=== PATIENT | male | born 1945 | race Caucasian/White ===

== ENCOUNTER 2019-01-31 16:11 | Outpatient (CLI) | payer MEDICARE ==
--- NOTE | 2019-01-31 16:47 | CT ---
Exam: Noncontrast chest CT; CT lung scan low dose HISTORY:Low-dose lung scan. Screening study. 50 plus years smoking history. Patient currently still s mokes. COMPARISON: None TECHNIQUE: Low-dose screening lung CT is performed utilizing institutional protocol FINDINGS: Lung screening specific (LUNG-RADS): Category 2. Benign findings. 5 mm subpleural lymph node adjacent to the right major fissure. 4 mm nodule in the right lower lobe. 3 mm nodule in the middle lobe. There is nodularity in the left and right lung apex measuring 0.6 x 0.6, 0.3 x 0.4 cm at the left jovan g apex and 0.8 x 0.4 and 0.5 x 0.6 cm in the right lung apex. Additional linear opacity in the left or right lung apex likely represent scarring. Potential significant incidentals (lung RADS category S): None Pulmonary incidentals:Mild emphysematous changes of the lung parenchyma. Other incidentals: Contracted gallbladder with gallstones. IMPRESSION: 1. Lung RADS 2. Benign finding. Nodularity in the left or right lung apex with linear opacities likel y representing scarring. 2. Lung Rask category S: Negative. No new or unknown potential significant incidental findings requir ing urgent additional evaluation 3. Other incidentals as above. Recommendation: Continued routine annual low-dose lung screening CT. Follow-up in one year. Transcribed Date/Time: 01/31/2019 5:33 PM
== END 2019-01-31 16:12 | disposition home or self-care (01) ==
LOC: CT 16:11
PROVIDERS: ATTEND Internal Medicine
DX: Z87.891 Personal history of nicotine dependence (principal); R91.8 Other nonspecific abnormal finding of lung field
CPT/HCPCS: G0297

== ENCOUNTER 2020-11-07 14:18 | Outpatient (CLI) | payer MEDICARE | END 2020-11-07 14:19 | disposition home or self-care (01) | LOC: BICCT 14:18 | PROVIDERS: ATTEND Internal Medicine | DX: Z12.2 Encounter for screening for malignant neoplasm of respiratory organs (principal); F17.210 Nicotine dependence, cigarettes, uncomplicated; K80.20 Calculus of gallbladder without cholecystitis without obstruction; J43.9 Emphysema, unspecified | CPT/HCPCS: 71271 ==

== ENCOUNTER 2022-01-23 12:27 | Outpatient (CLI) | payer MEDICARE | END 2022-01-23 12:28 | disposition home or self-care (01) | LOC: CT 12:27 | PROVIDERS: ATTEND Internal Medicine | DX: Z12.2 Encounter for screening for malignant neoplasm of respiratory organs (principal); F17.210 Nicotine dependence, cigarettes, uncomplicated | CPT/HCPCS: 71271 ==

== ENCOUNTER 2023-05-10 08:45 | Day surgery (SDC) | payer MEDICARE ==
[2023-05-06 10:06] VITALS: BMI 23.6
[2023-05-10] MEDS ORDERED: Fentanyl 250 MCG/5 ML VIAL ONE (11:21)
[2023-05-10] MEDS ORDERED: CEFAZOLIN 2 GM VIAL ONE (11:28)
[2023-05-10] MEDS ORDERED: Sodium Chloride 0.9% 100 ML ONE (11:28)
[2023-05-10] MEDS ORDERED: ePHEDrine Sulfate 50 MG/10 ML VIAL ONE (11:38)
[2023-05-10] MEDS ORDERED: Rocuronium Bromide 10 MG/ML (10ML VIAL) ONE (11:38)
[2023-05-10] MEDS ORDERED: PROPOFOL 200 MG/20 ML VIAL ONE (11:38)
[2023-05-10] MEDS ORDERED: Ondansetron PF 4 MG/2 ML Vial ONE (11:38)
[2023-05-10] MEDS ORDERED: Lidocaine 1% PF 5 ML VIAL ONE (11:38)
[2023-05-10] MEDS ORDERED: mitoMYcin 40 MG, Admixture Fee 1 EACH in Sodium Chloride 0.9% 40 ML I-VESIC SCH (12:00)
[2023-05-10] MEDS ORDERED: SUGAMMADEX SODIUM 200 MG/2 ML VIAL ONE ×2 (12:24→12:25)
[2023-05-10] MEDS ORDERED: fentaNYL 50 mcg/mL 1 mL Vial ONE (13:26)
[2023-05-10] MEDS ORDERED: Hyoscyamine SL 0.125 MG TAB ONE ×2 (13:37→13:43)
== END 2023-05-10 15:05 | disposition home or self-care (01) ==
LOC: SDC 08:45
PROVIDERS: ATTEND Urology
PROC: 0TBB8ZZ Excision of Bladder, Via Natural or Artificial Opening Endoscopic (ICD-10-PCS; principal; 2023-05-10)
DX: C67.3 Malignant neoplasm of anterior wall of bladder (principal); D09.0 Carcinoma in situ of bladder; N32.89 Other specified disorders of bladder
CPT/HCPCS: 52240; J3010; J9280; 88305; J2405; J2704; J3490